=== PATIENT | male | born 1965 | race American Indian/Alaskan Native ===

== ENCOUNTER 2017-02-09 16:05 | Emergency (ER) | payer BC, OTHER ==
--- NOTE | 2017-02-09 15:52 | EDM.PDOC ---
ED HISTORY OF PRESENT ILLNESS - General Chief Complaint: Respiratory Problem Stated Complaint: SOB Time Seen by Provider: 02/09/17 16:09 Source of Information: Reports: Patient, Old records, RN, RN notes reviewed History Limitations: Reports: No limitations - History of Present Illness INITIAL COMMENTS - FREE TEXT/NARRATIVE: Patient arrives to ER from home by private vehicle with shortness of breath and cough. Patient states that he was treated on 03/02/17 at [facility] diagnosed with pneumonia and wheezing. He was treated as an outpatient with a Z-Tino and Medrol dose Tino and Albuterol nebulizer solution, which he is now out of. Severity: severe Location, General: Reports: chest Improves with: Reports: None Worsens with: Reports: None Associated Symptoms (General): Reports: no other symptoms - Related Data Allergies/ADRs: Allergies Allergy/AdvReac Type Severity Reaction Status Date / Time ketorolac [From Toradol] Allergy Severe Anaphylactic Verified 02/09/17 16:12 Shock aspirin Allergy Respiratory Verified 12/07/14 08:02 Distress codeine Allergy Respiratory Verified 12/07/14 08:02 Distress Home Meds: Home Meds Metformin 1,000 mg PO BID 08/06/14 [History] Acetaminophen [Tylenol Extra Strength] 1,000 mg PO Q4HR PRN 12/07/14 [History] Lisinopril 5 mg PO DAILY 02/09/17 [History] Social & Family History - Family History Family Medical History: Noncontributory - Tobacco Use Smoking Status *Q: Never Smoker Second Hand Smoke Exposure: No - Recreational Drug Use Recreational Drug Use: No ED ROS GENERAL - Review of Systems Review Of Systems: ROS reveals no pertinent complaints other than HPI. ED EXAM, GENERAL - Physical Exam Exam: See Below Exam Limited By: No limitations General Appearance: alert, WD/WN, no apparent distress Eye Exam: bilateral eye: normal inspection Ears: normal external exam, normal canal, hearing grossly normal, normal TMs Nose: normal inspection, normal mucosa, no blood Throat/Mouth: Normal inspection, Normal lips, Normal teeth, Normal gums, Normal oropharynx, Normal voice, No airway compromise Head: atraumatic, normocephalic Neck: normal inspection, supple, non-tender, full range of motion Respiratory/Chest: no respiratory distress, no accessory muscle use, decreased breath sounds, wheezing Cardiovascular: normal peripheral pulses, regular rate, rhythm, no edema, no gallop, no JVD, no murmur, no rub, tachycardia GI/Abdominal: normal bowel sounds, soft, non tender, no organomegaly, no distention, no abnormal bruit, no mass Back Exam: normal inspection Extremities: normal inspection, normal range of motion, non-tender, normal capillary refill, no pedal edema Neurological: alert, oriented, CN II-XII intact, normal cognition, normal gait, no motor/sensory deficits Psychiatric: normal affect, normal mood Skin Exam: Warm, Dry, Intact, Normal color, No rash Course - Vital Signs Last Recorded V/S: Last Vital Signs Temp 36.6 C 02/09/17 16:05 Pulse 103 H 02/09/17 16:24 Resp 18 02/09/17 16:05 BP 137/87 02/09/17 16:05 Pulse Ox 96 02/09/17 16:24 - Orders/Labs/Meds Orders: Active Orders 24 hr Category Date Time Status Peripheral IV Care [RC] . DIRECTED Care 02/09/17 16:25 Active RT Aerosol Therapy [RC] ASDIRECTED Care 02/09/17 16:10 Active B-TYPE NATRIURETIC PEPTIDE,BNP [CHEM] Stat Lab 02/09/17 16:35 Results COMPREHENSIVE METABOLIC PN,CMP [CHEM] Stat Lab 02/09/17 16:35 Results CULTURE BLOOD [BC] Stat Lab 02/09/17 16:35 Received CULTURE BLOOD [BC] Stat Lab 02/09/17 16:40 Received D Dimer [D-DIMER QUANTITATIVE] [COAG] Stat Lab 02/09/17 16:35 Received Sodium Chloride 0.9% [Saline Flush] Med 02/09/17 16:24 Active 10 ml FLUSH ASDIRECTED PRN Blood Culture x2 Reflex Set [OM.PC] Stat Oth 02/09/17 16:24 Ordered Peripheral IV Insertion Adult [OM.PC] Stat Oth 02/09/17 16:24 Ordered Medication Orders Sodium Chloride (Saline Flush) 10 ml FLUSH ASDIRECTED PRN PRN Reason: Keep Vein Open Last Admin: 02/09/17 16:40 Dose: 10 ml Labs: Laboratory Tests 02/09/17 02/09/17 02/09/17 Range/Units 16:28 16:28 16:35 WBC 11.6 H (5.0-10.0) 10^3/uL RBC 5.16 (4.6-6.2) 10^6/uL Hgb 15.0 (14.0-18.0) g/dL Hct 44.0 (40.0-54.0) % MCV 85.3 (80-100) fL MCH 29.1 (27.0-34.0) pg MCHC 34.1 (33.0-35.0) g/dL Plt Count 204 (150-450) 10^3/uL Neut % (Auto) 65.1 (42.2-75.2) % Lymph % (Auto) 25.0 (20.5-50.1) % [place] % (Auto) 7.6 (2-8) % Eos % (Auto) 2.0 (1.0-3.0) % Baso % (Auto) 0.3 (0.0-1.0) % Sodium (135-145) mmol/L Potassium (3.6-5.0) mmol/L Chloride (101-111) mmol/L Carbon Dioxide (21.0-31.0) mmol/L Anion Gap BUN (7-18) mg/dL Creatinine (0.6-1.3) mg/dL Est Cr Clr Drug Dosing mL/min Estimated GFR (MDRD) BUN/Creatinine Ratio Glucose (74-105) mg/dL Lactic Acid (0.5-2.2) mmol/L Calcium (8.4-10.2) mg/dl Total Bilirubin (0.2-1.0) mg/dL AST (10-42) IU/L ALT (10-60) IU/L Alkaline Phosphatase (42-121) IU/L Total Protein (6.7-8.2) g/dl Albumin (3.2-5.5) g/dl Globulin Albumin/Globulin Ratio Urine Color Yellow (YELLOW) Urine Appearance Clear (CLEAR) Urine pH 6.5 (5.0-9.0) Ur Specific [place] 1.020 (1.005-1.030) Urine Protein Negative (NEGATIVE) Urine Glucose (UA) 500 H (NEGATIVE) Urine Ketones Trace H (NEGATIVE) Urine Occult Blood Negative (NEGATIVE) Urine Nitrite Negative (NEGATIVE) Urine Bilirubin Negative (NEGATIVE) Urine Urobilinogen 0.2 (0.2-1.0) mg/dL Ur Leukocyte Esterase Negative (NEGATIVE) Urine RBC 0-5 /HPF Urine WBC 0-5 (0-5/HPF) /HPF Ur Epithelial Cells Rare /HPF Urine Bacteria Occasional (0-FEW/HPF) /HPF Urine Opiates Screen Negative (NEGATIVE) Ur Oxycodone Screen Negative (NEGATIVE) Urine Methadone Screen Negative (NEGATIVE) Ur Barbiturates Screen Negative (NEGATIVE) U Tricyclic Antidepress Negative (NEGATIVE) Ur Phencyclidine Scrn Negative (NEGATIVE) Ur Amphetamine Screen Negative (NEGATIVE) U Methamphetamines Scrn Negative (NEGATIVE) Urine MDMA Screen Negative (NEGATIVE) U Benzodiazepines Scrn Negative (NEGATIVE) Urine Cocaine Screen Negative (NEGATIVE) U Marijuana (THC) Screen Negative (NEGATIVE) 02/09/17 02/09/17 Range/Units 16:35 16:35 WBC (5.0-10.0) 10^3/uL RBC (4.6-6.2) 10^6/uL Hgb (14.0-18.0) g/dL Hct (40.0-54.0) % MCV (80-100) fL MCH (27.0-34.0) pg MCHC (33.0-35.0) g/dL Plt Count (150-450) 10^3/uL Neut % (Auto) (42.2-75.2) % Lymph % (Auto) (20.5-50.1) % [place] % (Auto) (2-8) % Eos % (Auto) (1.0-3.0) % Baso % (Auto) (0.0-1.0) % Sodium 133 L (135-145) mmol/L Potassium 3.6 (3.6-5.0) mmol/L Chloride 95 L (101-111) mmol/L Carbon Dioxide 26.0 (21.0-31.0) mmol/L Anion Gap 15.6 BUN 12 (7-18) mg/dL Creatinine 0.8 (0.6-1.3) mg/dL Est Cr Clr Drug Dosing 111.70 mL/min Estimated GFR (MDRD) > 60 BUN/Creatinine Ratio 15.00 Glucose 276 H (74-105) mg/dL Lactic Acid 2.3 H (0.5-2.2) mmol/L Calcium 9.6 (8.4-10.2) mg/dl Total Bilirubin 1.0 (0.2-1.0) mg/dL AST 18 (10-42) IU/L ALT 22 (10-60) IU/L Alkaline Phosphatase 96 (42-121) IU/L Total Protein 8.1 (6.7-8.2) g/dl Albumin 3.9 (3.2-5.5) g/dl Globulin 4.2 Albumin/Globulin Ratio 0.93 Urine Color (YELLOW) Urine Appearance (CLEAR) Urine pH (5.0-9.0) Ur Specific [place] (1.005-1.030) Urine Protein (NEGATIVE) Urine Glucose (UA) (NEGATIVE) Urine Ketones (NEGATIVE) Urine Occult Blood (NEGATIVE) Urine Nitrite (NEGATIVE) Urine Bilirubin (NEGATIVE) Urine Urobilinogen (0.2-1.0) mg/dL Ur Leukocyte Esterase (NEGATIVE) Urine RBC /HPF Urine WBC (0-5/HPF) /HPF Ur Epithelial Cells /HPF Urine Bacteria (0-FEW/HPF) /HPF Urine Opiates Screen (NEGATIVE) Ur Oxycodone Screen (NEGATIVE) Urine Methadone Screen (NEGATIVE) Ur Barbiturates Screen (NEGATIVE) U Tricyclic Antidepress (NEGATIVE) Ur Phencyclidine Scrn (NEGATIVE) Ur Amphetamine Screen (NEGATIVE) U Methamphetamines Scrn (NEGATIVE) Urine MDMA Screen (NEGATIVE) U Benzodiazepines Scrn (NEGATIVE) Urine Cocaine Screen (NEGATIVE) U Marijuana (THC) Screen (NEGATIVE) Meds: Medications Generic Name Dose Route Start Last Admin Trade Name Freq PRN Reason Stop Dose Admin Sodium Chloride 10 ml 02/09/17 16:24 02/09/17 16:40 Saline Flush FLUSH 10 ml ASDIRECTED PRN Administration Keep Vein Open Discontinued Medications Generic Name Dose Route Start Last Admin Trade Name Freq PRN Reason Stop Dose Admin Albuterol/Ipratropium 3 ml 02/09/17 16:09 02/09/17 16:20 Duoneb 3.0-0.5 Mg/3 Ml NEB 02/09/17 16:10 3 ml ONETIME ONE Administration Benzonatate 200 mg 02/09/17 16:10 02/09/17 16:20 Tessalon Perles PO 02/09/17 16:11 200 mg ONETIME ONE Administration Methylprednisolone Sodium Succinate 125 mg 02/09/17 16:25 02/09/17 16:50 Solu-Medrol IVPUSH 02/09/17 16:26 125 mg ONETIME ONE Administration - Radiology Interpretation Free Text/Narrative:: Chest x-ray: Bronchitis per rad report. Departure - Departure Time of Disposition: 17:09 Disposition: Home, Self-Care 01 Condition: fair Clinical Impression: Bronchitis, acute, with bronchospasm Reactive airway disease with wheezing Qualifiers: Asthma severity: unspecified severity Asthma complication type: with acute exacerbation Qualified Code(s): J45.901 - Unspecified asthma with (acute) exacerbation Instructions: Bronchospasm, Adult, Acute Bronchitis Forms: ED Department Discharge Additional Instructions: Albuterol nebulizer solution. Zithromax 500mg. Tessalon Perles 200mg. Prednisone 20mg. Follow up at your primary clinic in 4-5 days for recheck, and ask your doctor to select a prednisone taper schedule for you. Return to ER if worse at any time. - My Orders Last 24 Hours: My Active Orders 02/09/17 16:10 RT Aerosol Therapy [RC] ASDIRECTED 02/09/17 16:24 Sodium Chloride 0.9% [Saline Flush] 10 ml FLUSH ASDIRECTED PRN Blood Culture x2 Reflex Set [OM.PC] Stat Peripheral IV Insertion Adult [OM.PC] Stat 02/09/17 16:25 Peripheral IV Care [RC] . DIRECTED 02/09/17 16:35 B-TYPE NATRIURETIC PEPTIDE,BNP [CHEM] Stat COMPREHENSIVE METABOLIC PN,CMP [CHEM] Stat CULTURE BLOOD [BC] Stat D Dimer [D-DIMER QUANTITATIVE] [COAG] Stat 02/09/17 16:40 CULTURE BLOOD [BC] Stat - Assessment/Plan Last 24 Hours: My Active Orders 02/09/17 16:10 RT Aerosol Therapy [RC] ASDIRECTED 02/09/17 16:24 Sodium Chloride 0.9% [Saline Flush] 10 ml FLUSH ASDIRECTED PRN Blood Culture x2 Reflex Set [OM.PC] Stat Peripheral IV Insertion Adult [OM.PC] Stat 02/09/17 16:25 Peripheral IV Care [RC] . DIRECTED 02/09/17 16:35 B-TYPE NATRIURETIC PEPTIDE,BNP [CHEM] Stat COMPREHENSIVE METABOLIC PN,CMP [CHEM] Stat CULTURE BLOOD [BC] Stat D Dimer [D-DIMER QUANTITATIVE] [COAG] Stat 02/09/17 16:40 CULTURE BLOOD [BC] Stat
[2017-02-09] MEDS ORDERED: Albuterol/Ipratropium 3.0-0.5 MG/3 ML Neb Soln NEB ONE (16:09)
[2017-02-09] MEDS ORDERED: Benzonatate 100 MG Cap PO ONE (16:10)
[2017-02-09] MEDS ORDERED: Sodium Chloride 0.9% 10 ML Syringe FLUSH PRN (16:24)
[2017-02-09] MEDS ORDERED: methylPREDNISolone Sodium Succinate 125 MG/2 ML SDV IVPUSH ONE (16:25)
[2017-02-09 16:27] VITALS: BP 137/87
--- NOTE | 2017-02-09 16:51 | CR ---
Clinical history: 51-year-old male cough and dyspnea. Interpretation: Mild kyphoscoliosis dorsal spine. Peribronchial "cuffing" bilaterally consistent with reactive airway disease or bronchitis. No focal lobar pneumonia and no sign of atelectasis/collapse. Normal cardiac silhouette without alveolar edema or dependent effusion. CONCLUSION: Bronchitis. No lobar pneumonia.
[2017-02-09 17:09] LABS: CHLORIDE,CL 95 mmol/L (101-111); SODIUM,NA 133 mmol/L (135-145)
== END 2017-02-09 17:30 | disposition home or self-care (01) ==
LOC: DL.ED 16:05
DX: J20.9 Acute bronchitis, unspecified (principal); J45.901 Unspecified asthma with (acute) exacerbation; Z79.899 Other long term (current) drug therapy; Z88.5 Allergy status to narcotic agent; Z88.8 Allergy status to other drugs, medicaments and biological substances
CPT/HCPCS: 36415; 71020; 80053; 80305; 81001; 83605; 83880; 85025; 85379; 87040; 94640; 96374; 99284; A9270; J2930; J7050

== ENCOUNTER 2019-01-26 15:38 | Emergency (ER) | payer BC, OTHER ==
[2019-01-26 15:43] VITALS: BP 165/93
[2019-01-26] MEDS ORDERED: Sodium Chloride 0.9% 10 ML Syringe FLUSH PRN (15:49)
[2019-01-26] MEDS ORDERED: Sodium Chloride 0.9% 1,000 ML IV ONE (15:56)
[2019-01-26] MEDS ORDERED: Morphine 2 MG/ML Syringe IVPUSH ONE ×2 (15:58→16:25)
[2019-01-26] MEDS ORDERED: Ondansetron 4 MG/2 ML SDV IV ONE ×3 (16:00→19:08)
[2019-01-26 16:17] LABS: ANION GAP 15.8; CHLORIDE,CL 101 mmol/L (101-111); SODIUM,NA 135 mmol/L (135-145)
[2019-01-26] MEDS ORDERED: Morphine 10 MG/ML SDV IV ONE (16:20)
[2019-01-26] MEDS ORDERED: HYDROmorphone 1 MG/ML Syringe IVPUSH ONE ×2 (16:55→17:41)
[2019-01-26] MEDS ORDERED: Tamsulosin 0.4 MG Cap.ER PO ONE (17:35)
[2019-01-26] MEDS ORDERED: Metoclopramide 10 MG/2 ML SDV IVPUSH ONE (19:00)
[2019-01-26] MEDS: Ondansetron 4 MG/2 ML SDV ONE ×2 (19:08→19:33)
--- NOTE | 2019-01-26 19:08 | EDM.PDOC ---
Scribed by Isabel Riley 01/26/19 [id number] for Namita Hammonds NP ED HPI GENERAL MEDICAL PROBLEM - General Chief Complaint: Flank Pain Stated Complaint: ABD PAIN [id number] Time Seen by Provider: 01/26/19 15:50 Source of Information: Reports: Patient, RN, RN Notes Reviewed History Limitations: Reports: No Limitations - History of Present Illness INITIAL COMMENTS - FREE TEXT/NARRATIVE: Patient presents to ER with complaint of left flank pain that wraps around to the left lower abdomen. States began 35-40 minutes ago. He has history of kidney stones in past. Rates pain 10/ He has nausea. Onset: Today Duration: Getting Worse Location: Reports: Other (flank) Quality: Reports: Ache Severity: Severe Improves with: Reports: None Worsens with: Reports: None Associated Symptoms: Reports: No Other Symptoms Left Flank Pain Score (Numeric/FACES): 10 - Related Data Allergies Allergy/AdvReac Type Severity Reaction Status Date / Time ketorolac [From Toradol] Allergy Severe Anaphylactic Verified 01/26/19 15:43 Shock aspirin Allergy Respiratory Verified 01/26/19 15:43 Distress codeine Allergy Respiratory Verified 01/26/19 15:43 Distress Home Meds: Home Meds Metformin 1,000 mg PO BID 08/06/14 [History] Acetaminophen [Tylenol Extra Strength] 1,000 mg PO Q4HR PRN 12/07/14 [History] Lisinopril 5 mg PO DAILY 02/09/17 [History] Past Medical History HEENT History: Reports: None Cardiovascular History: Reports: None Respiratory History: Reports: None Gastrointestinal History: Reports: None Genitourinary History: Reports: Renal Calculus Musculoskeletal History: Reports: None Neurological History: Reports: None Psychiatric History: Reports: None Endocrine/Metabolic History: Reports: Diabetes, Type II Hematologic History: Reports: None Oncologic (Cancer) History: Reports: None Dermatologic History: Reports: None - Past Surgical History HEENT Surgical History: Reports: Other (See Below) Social & Family History - Family History Family Medical History: Noncontributory - Tobacco Use Smoking Status *Q: Never Smoker Second Hand Smoke Exposure: No - Caffeine Use Caffeine Use: Reports: Soda, Tea - Recreational Drug Use Recreational Drug Use: No ED ROS GENERAL - Review of Systems Review Of Systems: ROS reveals no pertinent complaints other than HPI. ED EXAM, RENAL/ - Physical Exam Exam: See Below Exam Limited By: No Limitations General Appearance: Anxious, Moderate Distress Eye Exam: Bilateral Eye: EOMI, Normal Inspection, PERRL Ears: Normal External Exam, Normal Canal, Hearing Grossly Normal, Normal TMs Nose: Normal Inspection, Normal Mucosa, No Blood Throat/Mouth: Normal Inspection, Normal Lips, Normal Teeth, Normal Gums, Normal Oropharynx, Normal Voice, No Airway Compromise Head: Atraumatic, Normocephalic Neck: Normal Inspection, Supple, Non-Tender, Full Range of Motion Respiratory/Chest: No Respiratory Distress, Lungs Clear, Normal Breath Sounds, No Accessory Muscle Use, Chest Non-Tender Cardiovascular: Normal Peripheral Pulses, Regular Rate, Rhythm, No Edema, No Gallop, No JVD, No Murmur, No Rub GI/Abdominal: Other (Pain left lower quadrant. Left CVA tenderness. ) (Male) Exam: Deferred Rectal (Males) Exam: Deferred Back Exam: CVA Tenderness (L) Extremities: Normal Inspection, Normal Range of Motion, Non-Tender, Normal Capillary Refill, No Pedal Edema Neurological: Alert, Oriented, CN II-XII Intact, Normal Cognition, Normal Gait, Normal Reflexes, No Motor/Sensory Deficits Psychiatric: Anxious Skin Exam: Warm, Dry, Intact, Normal Color, No Rash Lymphatic: No Adenopathy Course - Vital Signs Last Recorded V/S: Last Vital Signs Temp 97.3 F 01/26/19 15:40 Pulse 75 01/26/19 15:40 Resp 18 01/26/19 15:40 BP 165/93 H 01/26/19 15:40 Pulse Ox 97 01/26/19 15:40 - Orders/Labs/Meds Orders: Active Orders 24 hr Category Date Time Status Peripheral IV Care [RC] . DIRECTED Care 01/26/19 15:49 Active Sodium Chloride 0.9% [Saline Flush] Med 01/26/19 15:49 Active 10 ml FLUSH ASDIRECTED PRN Peripheral IV Insertion Adult [OM.PC] Routine Oth 01/26/19 15:49 Ordered Medication Orders Sodium Chloride (Saline Flush) 10 ml FLUSH ASDIRECTED PRN PRN Reason: Keep Vein Open Last Admin: 01/26/19 15:53 Dose: 10 ml Labs: Laboratory Tests 01/26/19 01/26/19 01/26/19 Range/Units 15:47 15:52 15:52 WBC 7.5 (5.0-10.0) 10^3/uL RBC 5.86 (4.6-6.2) 10^6/uL Hgb 16.8 D (14.0-18.0) g/dL Hct 48.1 (40.0-54.0) % MCV 82.1 D (80-100) fL MCH 28.7 (27.0-34.0) pg MCHC 34.9 (33.0-35.0) g/dL Plt Count 233 (150-450) 10^3/uL Neut % (Auto) 55.6 (42.2-75.2) % Lymph % (Auto) 31.3 (20.5-50.1) % [place] % (Auto) 7.2 (2-8) % Eos % (Auto) 5.5 H (1.0-3.0) % Baso % (Auto) 0.4 (0.0-1.0) % Sodium 135 (135-145) mmol/L Potassium 3.8 (3.6-5.0) mmol/L Chloride 101 (101-111) mmol/L Carbon Dioxide 22.0 (21.0-31.0) mmol/L Anion Gap 15.8 BUN 15 (7-18) mg/dL Creatinine 0.8 (0.6-1.3) mg/dL Est Cr Clr Drug Dosing 109.24 mL/min Estimated GFR (MDRD) > 60 BUN/Creatinine Ratio 18.75 Glucose 290 H (74-105) mg/dL Calcium 9.4 (8.4-10.2) mg/dl Total Bilirubin 1.0 (0.2-1.0) mg/dL AST 27 (10-42) IU/L ALT 36 (10-60) IU/L Alkaline Phosphatase 81 (42-121) IU/L Total Protein 7.8 (6.7-8.2) g/dl Albumin 4.1 (3.2-5.5) g/dl Globulin 3.7 Albumin/Globulin Ratio 1.11 Urine Color Yellow (YELLOW) Urine Appearance Slightly cloudy (CLEAR) Urine pH 6.0 (5.0-9.0) Ur Specific [place] 1.020 (1.005-1.030) Urine Protein Negative (NEGATIVE) Urine Glucose (UA) 500 H (NEGATIVE) Urine Ketones Negative (NEGATIVE) Urine Occult Blood Small H (NEGATIVE) Urine Nitrite Negative (NEGATIVE) Urine Bilirubin Negative (NEGATIVE) Urine Urobilinogen 0.2 (0.2-1.0) mg/dL Ur Leukocyte Esterase Negative (NEGATIVE) Urine RBC 10-20 H /HPF Urine WBC 0-5 (0-5/HPF) /HPF Ur Epithelial Cells Rare /HPF Amorphous Sediment Few (0/HPF) /HPF Urine Bacteria Rare (0-FEW/HPF) /HPF Urine Mucus Rare /LPF Meds: Medications Generic Name Dose Route Start Last Admin Trade Name Freq PRN Reason Stop Dose Admin Sodium Chloride 10 ml 01/26/19 15:49 01/26/19 15:53 Saline Flush FLUSH 10 ml ASDIRECTED PRN Administration Keep Vein Open Discontinued Medications Generic Name Dose Route Start Last Admin Trade Name Freq PRN Reason Stop Dose Admin Hydromorphone HCl 1 mg 01/26/19 16:55 01/26/19 17:02 Dilaudid IVPUSH 01/26/19 16:56 1 mg ONETIME ONE Administration Hydromorphone HCl 1 mg 01/26/19 17:41 01/26/19 17:48 Dilaudid IVPUSH 01/26/19 17:42 1 mg ONETIME ONE Administration Sodium Chloride 1,000 mls @ 999 mls/hr 01/26/19 15:56 01/26/19 16:01 Normal Saline IV 01/26/19 16:56 999 mls/hr .BOLUS ONE Administration Metoclopramide HCl 10 mg 01/26/19 19:00 Reglan IVPUSH 01/26/19 19:01 ONETIME ONE Morphine Sulfate 2 mg 01/26/19 15:58 01/26/19 16:05 Morphine IVPUSH 01/26/19 15:59 2 mg ONETIME ONE Administration Morphine Sulfate 2 mg 01/26/19 16:20 01/26/19 16:31 Morphine IV 01/26/19 16:21 Not Given ONETIME ONE Morphine Sulfate 2 mg 01/26/19 16:25 01/26/19 16:29 Morphine IVPUSH 01/26/19 16:26 2 mg ONETIME ONE Administration Ondansetron HCl 4 mg 01/26/19 16:00 03/23/19 16:04 Zofran IV 01/26/19 16:01 4 mg ONETIME ONE Administration Ondansetron HCl 4 mg 01/26/19 17:41 01/26/19 17:45 Zofran IV 01/26/19 17:42 4 mg ONETIME ONE Administration Tamsulosin HCl 0.4 mg 01/26/19 17:35 01/26/19 17:52 Flomax PO 01/26/19 17:36 0.4 mg ONETIME ONE Administration - Radiology Interpretation Free Text/Narrative:: CT Abdomen/Pelvis wo contrast: FINDINGS: Lower thorax: No acute findings. ABDOMEN: Liver: Normal. No mass. Gallbladder and bile ducts: There has been a cholecystectomy. Pancreas: Normal. No ductal dilation. Spleen: Normal. No splenomegaly. Adrenals: Normal. No mass. Kidneys and ureters: There is a 4 millimeter mm. obstructive ureteral calculus located at the left UV junction resulting in proximal hydroureteronephrosis. There is minimal periureteral and perinephric stranding. No urinoma demonstrated. Stomach and bowel: Normal. No obstruction. No mucosal thickening. Appendix: No evidence of appendicitis. PELVIS: Bladder: Mild thickening of the bladder wall likely related to chronic bladder outlet obstruction. Clinical correlation to exclude cystitis suggested in the appropriate clinical setting. Reproductive: The prostate gland demonstrates mild hyperplasia. ABDOMEN and PELVIS: Intraperitoneal space: Normal. No free air. No significant fluid collection. Bones/joints: The spine demonstrates mild degenerative changes. Degenerative narrowing at the L5-S1 disc space. Soft tissues: Left inguinal hernia. Vasculature: The aorta demonstrates mild atherosclerotic calcification. Lymph nodes: Normal. No enlarged lymph nodes. IMPRESSION: 1. There has been a cholecystectomy. 2. There is a 4 millimeter mm. obstructive ureteral calculus located at the left UV junction resulting in proximal hydroureteronephrosis. There is minimal periureteral and perinephric stranding. No urinoma demonstrated. 3. Mild prostatic hyperplasia. 4. Mild thickening of the bladder wall likely related to chronic bladder outlet obstruction. Clinical correlation to exclude cystitis suggested in the appropriate clinical setting. Thank you for allowing us to participate in the care of your patient. Dictated and Authenticated by: Yasmany Romero MD 01/26/2019 4:58 PM Central Time ([place] & [place]) See rad report - Re-Assessments/Exams Free Text/Narrative Re-Assessment/Exam: 01/26/19 17:35 Discussed patient case with Dr. De La Torre, urologist, . He states the patient should be encouraged to pass the stone on his own to avoid surgery. He states the patient should have pain controlled, be started on Flomax, and follow up with primary care and urology next week. He states if the patient continues to have unbearable pain, he can be transferred to [place]. 01/26/19 19:04 Discussed patient case with Dr. Magana who agreed to accept the patient for transfer to Departure - Departure Time of Disposition: 19:04 Disposition: DC/Tfer to [facility] 02 Condition: Fair Clinical Impression: Hydronephrosis Qualifiers: Hydronephrosis type: unspecified Qualified Code(s): N13.30 - Unspecified hydronephrosis Ureteral obstruction Qualifiers: Laterality: left Qualified Code(s): N13.5 - Crossing vessel and stricture of ureter without hydronephrosis - Discharge Information *PRESCRIPTION DRUG MONITORING PROGRAM REVIEWED*: No *COPY OF PRESCRIPTION DRUG MONITORING REPORT IN PATIENT ILDA: No Forms: ED Department Discharge, Interfacility Transfer EMTALA - My Orders Last 24 Hours: My Active Orders 01/26/19 15:49 Peripheral IV Care [RC] . DIRECTED Sodium Chloride 0.9% [Saline Flush] 10 ml FLUSH ASDIRECTED PRN Peripheral IV Insertion Adult [OM.PC] Routine - Assessment/Plan Last 24 Hours: My Active Orders 01/26/19 15:49 Peripheral IV Care [RC] . DIRECTED Sodium Chloride 0.9% [Saline Flush] 10 ml FLUSH ASDIRECTED PRN Peripheral IV Insertion Adult [OM.PC] Routine I have read and agree with the documentation that has been completed regarding this visit. By signing this record, I attest that the documentation was completed in my physical presence and is an accurate record of the encounter.
== END 2019-01-26 19:30 ==
LOC: DL.ED 15:38
DX: N13.2 Hydronephrosis with renal and ureteral calculous obstruction (principal); E11.9 Type 2 diabetes mellitus without complications; Z88.5 Allergy status to narcotic agent; Z88.8 Allergy status to other drugs, medicaments and biological substances; Z79.899 Other long term (current) drug therapy; Z79.84 Long term (current) use of oral hypoglycemic drugs
CPT/HCPCS: 36415; 74176; 80053; 81001; 85025; 96361; 96374; 96375; 96376; 99285; A9270; J1170; J2270; J2405; J2765; J7030